=== PATIENT | female | born 1980 | race Caucasian/White ===

== ENCOUNTER 2017-12-02 17:25 | Emergency (ER) | payer MEDICAID ==
[~2017-12-02] VITALS: Ht 154.9 cm; Wt 47.1 kg
[2017-12-02 17:50] VITALS: BP 129/96; Ht 154.9 cm; Wt 47.1 kg
[2017-12-02] MEDS ORDERED: Bactrim DS PO (18:32)
[2017-12-02] MEDS ORDERED: NORCO 7.5/325 T1 TA1 PO (18:32)
== END 2017-12-02 18:40 | disposition home or self-care (01) ==
LOC: D.ER 17:25
DX: N76.4 Abscess of vulva (principal); F17.200 Nicotine dependence, unspecified, uncomplicated

== ENCOUNTER 2017-12-25 02:09 | Emergency (ER) | payer MEDICAID ==
[~2017-12-25] VITALS: Ht 154.9 cm; Wt 47.3 kg
[~2017-12-25 02:09] MED LIST: Bactrim DS PO; NORCO 7.5/325 T1 TA1 PO
[2017-12-25 02:14] VITALS: BP 109/62; Ht 154.9 cm; Wt 47.3 kg
[2017-12-25] MEDS ORDERED: MEDROL DOSE PACK4 MG PO (02:25)
[2017-12-25] MEDS ORDERED: BENADRYL50 MG PO (02:25)
== END 2017-12-25 02:51 | disposition home or self-care (01) ==
LOC: D.ER 02:09
DX: R21 Rash and other nonspecific skin eruption (principal); F17.200 Nicotine dependence, unspecified, uncomplicated

== ENCOUNTER 2018-02-20 13:16 | Emergency (ER) | payer MEDICAID ==
[~2018-02-20] VITALS: Ht 154.9 cm; Wt 49.5 kg
[~2018-02-20 13:16] MED LIST changes: +BENADRYL50 MG PO; +MEDROL DOSE PACK4 MG PO
[2018-02-20 13:20] VITALS: Ht 154.9 cm; Wt 49.5 kg
[2018-02-20] MEDS ORDERED: TESSALON PERLE100 MG PO (15:08)
[2018-02-20] MEDS ORDERED: MEDROL DOSE PACK4 MG PO (15:08)
[2018-02-20] MEDS ORDERED: ZPAK PO (15:08)
[2018-02-20 16:39] VITALS: BP 109/53
== END 2018-02-20 16:40 | disposition home or self-care (01) ==
LOC: D.ER 13:16
DX: J01.90 Acute sinusitis, unspecified (principal); R51 Headache; F17.200 Nicotine dependence, unspecified, uncomplicated

== ENCOUNTER 2018-03-02 00:10 | Emergency (ER) | payer MEDICAID ==
[~2018-03-02] VITALS: Ht 154.9 cm; Wt 49.5 kg
[~2018-03-02 00:10] MED LIST changes: +TESSALON PERLE100 MG PO; +ZPAK PO
[2018-03-02 00:16] VITALS: Ht 154.9 cm; Wt 49.5 kg
[2018-03-02] MEDS ORDERED: PERMETHRIN60 GM TOPICAL (01:26)
[2018-03-02 01:33] VITALS: BP 110/87
== END 2018-03-02 02:56 | disposition home or self-care (01) ==
LOC: D.ER 00:10
DX: B86 Scabies (principal); F17.200 Nicotine dependence, unspecified, uncomplicated

== ENCOUNTER 2018-04-29 22:10 | Emergency (ER) | payer MEDICAID ==
[~2018-04-29] VITALS: Ht 154.9 cm; Wt 49.1 kg
[~2018-04-29 22:10] MED LIST changes: +PERMETHRIN60 GM TOPICAL
[2018-04-29 22:20] VITALS: Ht 154.9 cm; Wt 49.1 kg
[2018-04-29] MEDS ORDERED: PHENERGAN DM SYR5 ML PO (23:07)
[2018-04-29] MEDS ORDERED: DOXYCYCLINE HY100 M2 PO (23:07)
[2018-04-29] MEDS ORDERED: ALBUTEROL SULF8.5 GM INH (23:07)
[2018-04-29 23:14] VITALS: BP 122/81
== END 2018-04-29 23:15 | disposition home or self-care (01) ==
LOC: D.ER 22:10
DX: J40 Bronchitis, not specified as acute or chronic (principal); R09.89 Other specified symptoms and signs involving the circulatory and respiratory systems

== ENCOUNTER 2018-06-13 20:13 | Emergency (ER) | payer MEDICAID ==
[~2018-06-13] VITALS: Ht 154.9 cm; Wt 50.0 kg
[~2018-06-13 20:13] MED LIST changes: +ALBUTEROL SULF8.5 GM INH; +DOXYCYCLINE HY100 M2 PO; +PHENERGAN DM SYR5 ML PO
[2018-06-13 20:21] VITALS: Ht 154.9 cm; Wt 50.0 kg
[2018-06-13] MEDS ORDERED: TORADOL10 MG PO (20:49)
[2018-06-13 21:10] VITALS: BP 122/70
== END 2018-06-13 21:10 | disposition home or self-care (01) ==
LOC: D.ER 20:13
DX: S99.911A Unspecified injury of right ankle, initial encounter (principal); W18.31XA Fall on same level due to stepping on an object, initial encounter; Y93.89 Activity, other specified; Y92.89 Other specified places as the place of occurrence of the external cause; S99.921A Unspecified injury of right foot, initial encounter